=== PATIENT | male | born 1945 | race Caucasian/White ===

== ENCOUNTER 2021-12-16 13:35 | Inpatient (IN) ==
[2021-12-16] MEDS ORDERED: 0.9 % Sodium Chloride 1,000 ML IVC ONE (14:30)
[2021-12-16 14:51] LABS: Basophils % 0.2 %; Hemoglobin 12.2 g/dL (12.9-16.9); Immature Granulocytes % 0.5 % (0-4); Lymphocytes # 1.1 K/mcL (0.6-4.6); Lymphocytes % 18.9 %; Mean Corpuscular Hemoglobin 29.5 pg (28.0-33.3); Mean Corpuscular Volume 89.4 fL (83.0-100.0); Mean Platelet Volume 10.8 fL (9.4-12.4); Monocytes # 0.3 K/mcL (0.0-1.3); Monocytes % 5.9 %; Neutrophils # 4.2 K/mcL (1.6-8.9); Red Blood Count 4.14 M/mcL (4.19-5.50); Red Cell Distribution Width 14.4 % (11.5-14.5); Segmented Neutrophils % 74.5 %; White Blood Count 5.6 K/mcL (4.3-11.1)
[2021-12-16 14:52] LABS: Platelet Count 98 K/mcL (140-400)
[2021-12-16 15:09] LABS: BUN/Creatinine Ratio 29 (6-26); Blood Urea Nitrogen 18 mg/dL (8-23); Calcium 8.1 mg/dL (8.6-10.3); Carbon Dioxide 27 mEq/L (23-29); Chloride 102 mEq/L (98-107); Glucose 146 mg/dL (70-105); Osmolality,Calculated 287 (280-300); Potassium 3.4 mEq/L (3.5-5.1); Sodium 136 mEq/L (136-145); eGFR For African Americans > 60 (> 60); eGFR For Non-African Americans > 60 (> 60)
[2021-12-16] MEDS ORDERED: Naloxone 0.4 MG/ML INJ IVP PRN ×2 (19:48→21:36)
[2021-12-16] MEDS ORDERED: Ondansetron 4 MG/2 ML VIAL IVP PRN (22:54)
[2021-12-16] MEDS ORDERED: Acetaminophen 325 MG TABLET PO PRN (22:54)
[2021-12-16] MEDS ORDERED: Melatonin 3 MG TABLET PO PRN (22:54)
[2021-12-17 07:14] LABS: Eosinophils # 0.2 K/mcL (0.0-0.6); Eosinophils % 3.4 %; Hematocrit 31.1 % (37.5-50.1); Hemoglobin 10.1 g/dL (12.9-16.9); Immature Granulocytes % 0.2 % (0-4); Lymphocytes # 1.4 K/mcL (0.6-4.6); Lymphocytes % 30.3 %; Mean Corpuscular HGB Conc 32.5 g/dL (31.6-35.5); Mean Corpuscular Hemoglobin 29.3 pg (28.0-33.3); Mean Corpuscular Volume 90.1 fL (83.0-100.0); Mean Platelet Volume 10.7 fL (9.4-12.4); Monocytes # 0.4 K/mcL (0.0-1.3); Monocytes % 9.2 %; Neutrophils # 2.5 K/mcL (1.6-8.9); Nucleated Red Blood Cells 0.4 /100 WBC (0); Red Blood Count 3.45 M/mcL (4.19-5.50); Red Cell Distribution Width 14.7 % (11.5-14.5); Segmented Neutrophils % 56.9 %; White Blood Count 4.5 K/mcL (4.3-11.1)
[2021-12-17 07:19] LABS: Platelet Count 91 K/mcL (140-400)
[2021-12-17 07:25] LABS: BUN/Creatinine Ratio 34 (6-26); Blood Urea Nitrogen 22 mg/dL (8-23); Calcium 7.8 mg/dL (8.6-10.3); Carbon Dioxide 29 mEq/L (23-29); Chloride 106 mEq/L (98-107); Glucose 79 mg/dL (70-105); Osmolality,Calculated 290 (280-300); Potassium 3.4 mEq/L (3.5-5.1); Sodium 139 mEq/L (136-145); eGFR For African Americans > 60 (> 60); eGFR For Non-African Americans > 60 (> 60)
[2021-12-17] MEDS ORDERED: *HR* Dextrose 50 % in Water (Syg) 50 ML SYRINGE IVP PRN (08:42)
[2021-12-17] MEDS ORDERED: D5% in Water 1,000 ML IVC PRN (08:42)
[2021-12-17] MEDS ORDERED: Dextrose 4 GM Chewable Tablets PO PRN ×2 (08:42)
[2021-12-17] MEDS ORDERED: NON-FORMULARY MEDICATION 1 EACH EACH (Multivitamin/Iron/Folic Acid [Centrum Complete Multi PO SCH (09:00)
[2021-12-17] MEDS: levETIRAcetam 250 MG TABLET PO SCH ×3 (09:46→20:40)
[2021-12-17] MEDS: Aspirin 81 MG TAB.CHEW PO SCH (09:46)
[2021-12-17] MEDS: Multivit/Ca/Min/Fe/FA 1 TAB TABLET PO SCH (09:47)
[2021-12-17] MEDS: dexAMETHasone 4 MG TABLET PO SCH ×2 (09:47→20:41)
[2021-12-17] MEDS: clonazePAM 0.5 MG TABLET PO SCH ×2 (09:48→20:40)
[2021-12-17] MEDS: PHENELZINE SULFATE 15 MG PO SCH ×3 (09:49→22:58)
[2021-12-17] MEDS ORDERED: 0.9 % Sodium Chloride 1,000 ML IVC ONE (11:40)
[2021-12-17] MEDS: Insulin LISPRO 300 UNITS/3 ML VIAL SUBQ SCH ×2 (11:48→16:35)
[2021-12-17] MEDS: 0.9 % Sodium Chloride 1,000 ML IVC SCH ×2 (13:25→22:58)
[2021-12-17] MEDS ORDERED: Calcium Gluconate 1gm/50mL 1 GM/50 ML BAG IVPB ONE (16:28)
[2021-12-18] MEDS ORDERED: *HR* Enoxaparin 40 MG/0.4 ML SYRINGE SQ SCH (06:00)
[2021-12-18] MEDS: 0.9 % Sodium Chloride 1,000 ML IVC SCH ×3 (06:17→21:28)
[2021-12-18 07:27] LABS: Hematocrit 30.4 % (37.5-50.1); Hemoglobin 9.6 g/dL (12.9-16.9); Mean Corpuscular HGB Conc 31.6 g/dL (31.6-35.5); Mean Corpuscular Hemoglobin 29.7 pg (28.0-33.3); Mean Corpuscular Volume 94.1 fL (83.0-100.0); Mean Platelet Volume 10.8 fL (9.4-12.4); Red Blood Count 3.23 M/mcL (4.19-5.50); White Blood Count 3.3 K/mcL (4.3-11.1)
[2021-12-18 07:28] LABS: Platelet Count 93 K/mcL (140-400)
[2021-12-18 08:26] LABS: BUN/Creatinine Ratio 38 (6-26); Blood Urea Nitrogen 27 mg/dL (8-23); Calcium 7.8 mg/dL (8.6-10.3); Carbon Dioxide 29 mEq/L (23-29); Chloride 110 mEq/L (98-107); Glucose 126 mg/dL (70-105); Osmolality,Calculated 299 (280-300); Potassium 3.7 mEq/L (3.5-5.1); Sodium 141 mEq/L (136-145); eGFR For African Americans > 60 (> 60); eGFR For Non-African Americans > 60 (> 60)
[2021-12-18] MEDS: Insulin LISPRO 300 UNITS/3 ML VIAL SUBQ SCH ×3 (08:26→19:09)
[2021-12-18] MEDS: Multivit/Ca/Min/Fe/FA 1 TAB TABLET PO SCH (08:55)
[2021-12-18] MEDS: dexAMETHasone 4 MG TABLET PO SCH ×2 (08:55→21:28)
[2021-12-18] MEDS: clonazePAM 0.5 MG TABLET PO SCH ×2 (08:55→18:10)
[2021-12-18] MEDS: levETIRAcetam 250 MG TABLET PO SCH ×3 (08:56→21:27)
[2021-12-18] MEDS: Aspirin 81 MG TAB.CHEW PO SCH (08:56)
[2021-12-18] MEDS: PHENELZINE SULFATE 15 MG PO SCH ×3 (09:00→21:27)
[2021-12-18] MEDS ORDERED: Calcium Gluconate 1gm/50mL 1 GM/50 ML BAG IVPB ONE (15:31)
[2021-12-18] MEDS ORDERED: clonazePAM 0.5 MG TABLET PO ONE ×2 (17:58→20:50)
[2021-12-18 18:46] VITALS: BP 161/81; PULSE 74; RESP 16; TEMP 98.4; O2SAT 98
== END 2021-12-18 22:51 | disposition short-term general hospital (02) | DRG 312 ==
LOC: INPPIK 13:35 → EMEROOPIK 13:35 → SUATTDRO 19:59 → INPPIK 21:04
PROVIDERS: ADMIT Internal Medicine; ATTEND Family Medicine